=== PATIENT | female | born 1945 | race Hispanic/Latino ===

== ENCOUNTER → 2017-09-05 | Outpatient (CLI) | payer OTHER, MEDICARE | LOC: OIH 09:26 | PROVIDERS: ATTEND Internal Medicine | DX: M48.061 Spinal stenosis, lumbar region without neurogenic claudication (principal); M25.562 Pain in left knee | CPT/HCPCS: 72100; 73560 ==

== ENCOUNTER → 2018-06-28 | Outpatient (CLI) | payer OTHER, MEDICARE | END | disposition home or self-care (01) | LOC: OIH 11:10 | PROVIDERS: ATTEND Internal Medicine | DX: I10 Essential (primary) hypertension (principal); Q25.46 Tortuous aortic arch; M85.88 Other specified disorders of bone density and structure, other site; M47.894 Other spondylosis, thoracic region | CPT/HCPCS: 71046 ==

== ENCOUNTER → 2019-08-06 | Outpatient (CLI) | payer OTHER, MEDICARE | END | disposition home or self-care (01) | LOC: OIH 10:11 | PROVIDERS: ATTEND Internal Medicine | DX: I10 Essential (primary) hypertension (principal); I70.0 Atherosclerosis of aorta | CPT/HCPCS: 71046 ==